=== PATIENT | male | born 1935 | race Caucasian/White ===

== ENCOUNTER 2016-08-16 12:47 | Day surgery (SDC) | payer OTHER ==
[~2016-08-16] VITALS: Ht 180.3 cm; Wt 113.0 kg
[~2016-08-16 12:47] MED LIST: ARICEPT10 MG PO; ASPIR 8181 M1 PO; FLOMAX0.4 MG PO; GRAPE SEED50 MG PO; LAMICTAL150 M1 PO; LECITHIN400 MG PO; LEXAPRO10 MG PO; NAMENDA10 MG PO; OMEGA 3 500 SO1 EACH PO; RANEXA1000 MG PO; SLOW-MAG,MAG DE64 MG PO; VITAMIN E400 UNIT PO; ZOCOR20 MG PO
[2016-08-16 13:39] LABS: POINT-OF-CARE METER ID UU14174212
[2016-08-16 13:48] LABS: HEMATOCRIT 42.7 % (38.0-50.0); MCH 30.2 PG (29.0-34.0); MCHC 32.3 G/DL (30.0-36.0); MCV 93.4 FL (86-99); MEAN PLAT.VOLUME 10.1 uM^3 (9.0-12.4); PLATELET COUNT 132 K/uL (156-360); RBC DIS.WIDTH-CV 14.5 % (11.8-14.6); RBC DIS.WIDTH-SD 49.1 % (39-53); RED BLOOD COUNT 4.57 M/uL (4.00-5.50); WHITE BLOOD COUNT 4.6 K/uL (4.1-10.2)
[2016-08-16 13:57] VITALS: BP 160/74
[2016-08-16 13:58] LABS: CHLORIDE 104 mEq/L (99-109); POTASSIUM 4.9 mEq/L (3.7-5.4); SODIUM 138 mEq/L (136-147)
[2016-08-16 14:00] LABS: GLUCOSE 114 mg/dL (70-99)
[2016-08-16 14:01] LABS: ANION GAP 8 MEQ/L (2-14)
[2016-08-16 14:04] LABS: GFR ESTIMATE (CALCULATED) 42 mL/min/
[2016-08-16 14:05] LABS: UREA NITROGEN (BUN) 34 mg/dL (9-23)
[2016-08-16 15:18] LABS: METH RESISTANT S AUREUS PCR NEGATIVE (NEGATIVE)
[2016-08-16 15:20] LABS: PROBE CHECK PASS; SPECIMEN PROCESSING CONTROL PASS
[2016-08-16] MEDS ORDERED: NORCO 5/3251 TABLET PO (17:17)
[2016-08-16 18:18] VITALS: BP 147/79
== END 2016-08-16 18:37 | disposition home or self-care (01) ==
LOC: SDC 12:47
PROVIDERS: Anesthesiology; Surgery
DX: C44.622 Squamous cell carcinoma of skin of right upper limb, including shoulder (principal); L97.829 Non-pressure chronic ulcer of other part of left lower leg with unspecified severity; E11.9 Type 2 diabetes mellitus without complications; I25.10 Atherosclerotic heart disease of native coronary artery without angina pectoris; I10 Essential (primary) hypertension; I69.328 Other speech and language deficits following cerebral infarction; E78.5 Hyperlipidemia, unspecified; G30.9 Alzheimer's disease, unspecified; F02.80 Dementia in other diseases classified elsewhere, unspecified severity, without behavioral disturbance, psychotic disturbance, mood disturbance, and anxiety; Z87.891 Personal history of nicotine dependence; Z88.0 Allergy status to penicillin; Z82.49 Family history of ischemic heart disease and other diseases of the circulatory system; Z79.82 Long term (current) use of aspirin
CPT/HCPCS: 80048; 82948; 85027; 87641; 88305; 93005; J0171; J0690; J3010; S0020